=== PATIENT | female | born 1985 | race Caucasian/White ===

== ENCOUNTER → 2016-11-16 | Outpatient (CLI) | payer MEDICAID | DX: Z36 Encounter for antenatal screening of mother (principal); Z3A.24 24 weeks gestation of pregnancy ==

== ENCOUNTER 2016-12-12 23:26 | Outpatient (CLI) | payer MEDICAID ==
[~2016-12-12] VITALS: Ht 165.1 cm; Wt 91.2 kg
[2016-12-12 23:37] VITALS: BP 114/76
[2016-12-13] MEDS ORDERED: CEPHALEXIN 250 MG (KEFLEX) CAP PO ONE ×2 (00:02)
--- NOTE | 2016-12-13 11:35 | Physician Query-Final Dx ---
SANDER LONG 12/13/16 1135: Clinic Account Progress/Dx Physician Query: Please give diagnosis Date of Service Dec 12, 2016 at 23:26 CHANCE JOVEL MD 12/13/16 2010: Clinic Account Progress/Dx DIAGNOSIS: Diagnosis Abdominal pain Acute Cystitis w/o Hematuria Third trimester 30 weeks gestation SANDER LONG Dec 13, 2016 11:35 CHANCE JOVEL MD Dec 13, 2016 20:10
== END 2016-12-13 00:30 | disposition home or self-care (01) ==
LOC: WSo 23:26 → LDRP 23:29 → WSo 12-13 00:30
PROVIDERS: ATTEND Family Medicine
DX: O23.13 Infections of bladder in pregnancy, third trimester (principal); Z3A.30 30 weeks gestation of pregnancy
CPT/HCPCS: 99213

== ENCOUNTER → 2016-12-14 | Outpatient (CLI) | payer MEDICAID ==
[~2016-12-14] MED LIST: IBUP-1773 PO; PREN1TAB86 PO
--- NOTE | 2016-12-15 14:31 | Diagnostic Imaging Report ---
INDICATION: Followup incomplete anatomical survey. TECHNIQUE: Multiple real-time grayscale images were obtained over the gravid uterus. COMPARISON: 11/16/2016. FINDINGS: Single live intrauterine is again demonstrated. heart rate measures 152 beats per minute. Good visualization of the four-chamber heart on today's exam. Placenta is located posteriorly with no placenta previa. No other abnormality identified. IMPRESSION: Single live intrauterine is again noted. four-chamber heart appears within normal limits. No placenta previa. Dictated by: Dictated on workstation # [id number]
== END ==
LOC: RAD 11:20
PROVIDERS: ATTEND Family Medicine
DX: Z36 Encounter for antenatal screening of mother (principal); Z3A.00 Weeks of gestation of pregnancy not specified
CPT/HCPCS: 76816

== ENCOUNTER 2017-02-13 15:00 | Outpatient (CLI) | payer MEDICAID ==
[~2017-02-13] VITALS: Ht 165.1 cm; Wt 93.9 kg
[2017-02-13 15:30] VITALS: BP 114/75
[2017-02-13] MEDS ORDERED: PREN1TAB86 PO (15:45)
[2017-02-13 16:00] VITALS: BP 119/74
[2017-02-13 16:18] LABS: BILIRUBIN,URINE NEGATIVE (NEGATIVE); KETONES,URINE NEGATIVE (NEGATIVE); LEUKOCYTE ESTERASE ,URINE 3+ (NEGATIVE); NITRITE,URINE NEGATIVE (NEGATIVE); PH,URINE 6 (5-9); PROTEIN,URINE 2+ (NEGATIVE); UROBILINOGEN,URINE NORMAL (NORMAL)
[2017-02-13 16:27] LABS: CALCIUM OXALATE CRYSTALS,UR MODERATE /LPF; SQUAMOUS EPITHELIAL CELL,UR >50 /HPF
[2017-02-13 17:00] VITALS: BP 119/74
--- NOTE | 2017-02-14 09:42 | Physician Query-Final Dx ---
SANDER LONG 02/14/17 0942: Clinic Account Progress/Dx Physician Query: Please give diagnosis Date of Service Feb 13, 2017 at 15:00 FRANK TIERNEY MD 02/14/17 1429: Clinic Account Progress/Dx DIAGNOSIS: Diagnosis 37 week gestation Contractions with no active labor SANDER LONG Feb 14, 2017 09:42 FRANK TIERNEY MD Feb 14, 2017 14:29
== END 2017-02-13 17:15 | disposition home or self-care (01) ==
LOC: LDRP 15:00 → WSo 15:00
PROVIDERS: ATTEND Family Medicine
DX: O47.1 False labor at or after 37 completed weeks of gestation; Z3A.37 37 weeks gestation of pregnancy
CPT/HCPCS: 81000; 87088; 99213

== ENCOUNTER 2017-02-18 20:23 | Outpatient (CLI) | payer MEDICAID ==
[~2017-02-18] VITALS: Ht 165.1 cm; Wt 96.6 kg
[~2017-02-18 20:23] MED LIST changes: -IBUP-1773 PO
[2017-02-18 20:46] VITALS: BP 123/71
== END 2017-02-18 21:24 | disposition home or self-care (01) ==
LOC: WSo 20:23 → LDRP 20:23 → WSo 21:24
PROVIDERS: ATTEND Family Medicine
DX: O47.1 False labor at or after 37 completed weeks of gestation (principal); Z3A.38 38 weeks gestation of pregnancy
CPT/HCPCS: 99214

== ENCOUNTER 2017-02-27 06:04 | Inpatient (IN) | payer MEDICAID ==
[2017-02-27] VITALS (77 sets, daily range): BP systolic 95–152; BP diastolic 53–97
[~2017-02-27] VITALS: Ht 165.1 cm; Wt 96.2 kg
[2017-02-27] MEDS ORDERED: MINERAL OIL CONCENTRATE 99.9% 15 ML UDC TOP PRN (06:30)
[2017-02-27 06:33] LABS: BILIRUBIN,URINE NEGATIVE (NEGATIVE); KETONES,URINE NEGATIVE (NEGATIVE); LEUKOCYTE ESTERASE ,URINE 2+ (NEGATIVE); NITRITE,URINE NEGATIVE (NEGATIVE); PH,URINE 6 (5-9); PROTEIN,URINE NEGATIVE (NEGATIVE); UROBILINOGEN,URINE NORMAL (NORMAL)
[2017-02-27 06:40] LABS: SQUAMOUS EPITHELIAL CELL,UR 25-50 /HPF
[2017-02-27 06:47] LABS: BASOPHILS % (AUTO) 0 % (0-10); EOSINOPHILS # (AUTO) 0.1 10^3/uL (0.0-0.3); EOSINOPHILS % (AUTO) 1 % (0-10); LYMPHOCYTES # (AUTO) 2.5 X 10^3 (1.0-4.0); LYMPHOCYTES % (AUTO) 25 % (12-44); MEAN CORPUSCULAR HEMOGLOBIN 30 PG (25-34); MEAN CORPUSCULAR HGB CONC 35 G/DL (32-36); MEAN CORPUSCULAR VOLUME 87 FL (80-99); MEAN PLATELET VOLUME 11.5 FL (7.4-10.4); MONOCYTES # (AUTO) 0.7 X 10^3 (0.0-1.0); MONOCYTES % (AUTO) 7 % (0-12); NEUTROPHILS # (AUTO) 6.7 X 10^3 (1.8-7.8); NEUTROPHILS % (AUTO) 67 % (42-75); PLATELET COUNT 203 10^3/uL (130-400); RED BLOOD COUNT 3.87 10^6/uL (4.35-5.85)
[2017-02-27] MEDS: D5 LR IV SOLUTION 1,000 ML IV SCH ×2 (06:51→14:43)
[2017-02-27] MEDS ORDERED: OXYTOCIN/NORMAL SALINE 500 ML IV SCH ×2 (07:34→21:31)
--- NOTE | 2017-02-27 07:42 | History & Physical-OB ---
OB - Chief Complaint & HPI Date/Time Date of Admission: Date of Admission: Feb 27, 2017 at 6:11 am Time Seen by Provider: 06:35 Chief Complaint/History OB-Reason for Admission/Chief: Induction of Labor Hx : 4 Hx Para: 3 Expected Date of Delivery: Mar 03, 2017 Gestational Age in Weeks: 39 Gestational Age in Days: 3 Indication for induction: other (elective) History of Labs B+, antibody neg, RI, HIV/HepB/RPR NR. GC/chlamydia neg. 1 hour glucola normal. GBS neg. Allergies and Home Medications Allergies Coded Allergies: No Known Drug Allergies (Unverified , 12/12/16) Home Medications Vit W-Ca,Fe,FA(<1 mg) 1 Each Tablet, 1 TAB PO DAILY, (Reported) OB - History Hx of Present Care: Yes Ultrasounds: Normal mid trimester US Obstetrical Complications: None Medical Complications: None Other Concerns: Incarcerated for part of Obstetrical History Hx : 4 Hx Para: 3 Hx # Term Pregnancies: 3 Hx # Pregnancies: 0 Number of Living Children: 3 Hx Termination: No Hx Total # of Abortions (Spona: 0 Hx Multiple Gestation: No Hx Ectopic : No Hx Stillbirth: No Hx Complication: No Hx Induced Hypertens: No Hx Maternal Gestational Diabet: No Hx Hemorrhage: No Delivery History Hx Dystocia: No Hx Forceps Assisted Delivery: No Hx Vacuum Extraction Assisted: No Hx Placenta Abnormality: No Hx Distress: No Hx Large For Gestational Age I: No Hx Small for Gestational Age I: No Hx Section: No Hx Vaginal Delivery Post C-Sec: No Hx Blood Disorders: No Adverse Rxn to Tranfusion: No Patient Past Medical History PMHx: Denies PSurgHx: benign parotid tumor removal Social History/Family History HIV/AIDS: No Recent Infectious Disease Expo: No Sexually Transmitted Disease: No Alcohol Use: Denies Use Recreational Drug Use: No Smoking Cessation: Current every day smoker Immunizations Tetanus Booster (TDap): Less than 5yrs Date of Influenza Vaccine: Feb 05, 2017 Rubella: immune RPR/VDRL: Negative GBS Status: Negative HBsAG: Negative OB - Admission Exam Physical Exam Date Seen by Provider: Feb 27, 2017 Time Seen by Provider: 06:30 Vitals: Vital Signs 02/27/17 06:30 Temp 95.7 Pulse 71 Resp 16 B/P (MAP) 115/79 O2 Delivery Room Air HEENT: NCAT Abdomen: Non tender Cervical Dilatation: 4cm Effacement: 0% Station: -3 Membranes: Intact Heart Rate: 120's (115 baseline) Accelerations: Accelerations Present (with scalp stim) Short Term Variability: Present Assisted Variability: Minimal (3-5) Contractions on Admission: >10 Minutes Apart Intensity: Mild Josue Scoring Tool (Modified) Dilation (cm): 3-4cm (2) Effacement (%): 0-30% (0) Descent/Station: -3 (0) Cervix Consistency: Soft (2) Cervix Position: Middle/Mid-Position (1) Add 1 point for: Each previous vaginal delivery (1) Josue Score: 7 Labs Laboratory Tests Test 02/27/17 06:25 02/27/17 06:30 Range/Units Urine Color YELLOW Urine Clarity SLIGHTLY CLOUDY Urine pH 6 5-9 Urine Specific [place] 1.020 1.016-1.022 Urine Protein NEGATIVE NEGATIVE Urine Glucose (UA) NEGATIVE NEGATIVE Urine Ketones NEGATIVE NEGATIVE Urine Nitrite NEGATIVE NEGATIVE Urine Bilirubin NEGATIVE NEGATIVE Urine Urobilinogen NORMAL NORMAL MG/DL Urine Leukocyte Esterase 2+ H NEGATIVE Urine RBC (Auto) NEGATIVE NEGATIVE Urine RBC NONE /HPF Urine WBC 5-10 H /HPF Urine Squamous Epithelial Cells 25-50 H /HPF Urine Crystals NONE /LPF Urine Bacteria MODERATE H /HPF Urine Casts NONE /LPF Urine Mucus SMALL H /LPF Urine Culture Indicated YES Urine Opiates Screen NEGATIVE NEGATIVE Urine Oxycodone Screen NEGATIVE NEGATIVE Urine Methadone Screen NEGATIVE NEGATIVE Urine Propoxyphene Screen NEGATIVE NEGATIVE Urine Barbiturates Screen NEGATIVE NEGATIVE Ur Tricyclic Antidepressants Screen NEGATIVE NEGATIVE Urine Phencyclidine Screen NEGATIVE NEGATIVE Urine Amphetamines Screen NEGATIVE NEGATIVE Urine Methamphetamines Screen NEGATIVE NEGATIVE Urine Benzodiazepines Screen NEGATIVE NEGATIVE Urine Cocaine Screen NEGATIVE NEGATIVE Urine Cannabinoids Screen NEGATIVE NEGATIVE White Blood Count 10.0 4.3-11.0 10^3/uL Red Blood Count 3.87 L 4.35-5.85 10^6/uL Hemoglobin 11.6 11.5-16.0 G/DL Hematocrit 34 L 35-52 % Mean Corpuscular Volume 87 80-99 FL Mean Corpuscular Hemoglobin 30 25-34 PG Mean Corpuscular Hemoglobin Concent 35 32-36 G/DL Red Cell Distribution Width 13.0 10.0-14.5 % Platelet Count 203 130-400 10^3/uL Mean Platelet Volume 11.5 H 7.4-10.4 FL Neutrophils (%) (Auto) 67 42-75 % Lymphocytes (%) (Auto) 25 12-44 % Monocytes (%) (Auto) 7 0-12 % Eosinophils (%) (Auto) 1 0-10 % Basophils (%) (Auto) 0 0-10 % Neutrophils # (Auto) 6.7 1.8-7.8 X 10^3 Lymphocytes # (Auto) 2.5 1.0-4.0 X 10^3 Monocytes # (Auto) 0.7 0.0-1.0 X 10^3 Eosinophils # (Auto) 0.1 0.0-0.3 10^3/uL Basophils # (Auto) 0.0 0.0-0.1 10^3/uL OB - Assessment/Plan/Diagnosis Assessment Assessment: induction of labor Plan Plan: Induction Induction Method: per Pitocin Protocol FRANK TIERNEY MD Feb 27, 2017 7:42 am
[2017-02-27] MEDS ORDERED: SUFENTA 0.6MCG/ML BUPIVA 0.125 100 ML ONE (10:04)
[2017-02-27] MEDS: EPIDURAL (SUFENTA 0.6MCG/ML BUPIVA 0.125%) 100 ML BAG EPI SCH ×2 (11:17→18:49)
[2017-02-27] MEDS ORDERED: LACTATED RINGERS 1,000 ML IV SCH ×2 (11:21→17:35)
[2017-02-27] MEDS ORDERED: ONDANSETRON 4 MG/2 ML (SDV) Z0FRAN IV PRN (11:30)
[2017-02-27] MEDS ORDERED: METOCLOPRAMIDE INJ 10 MG/2 ML (REGLAN) IV PRN (11:30)
[2017-02-27] MEDS ORDERED: NALOXONE 0.4 MG/ML 1 ML (NARCAN) VIAL IV PRN ×2 (11:30)
[2017-02-27] MEDS ORDERED: diphenhydrAMINE 50 MG/ML INJ (BENADRYL) IV PRN (11:30)
[2017-02-27] MEDS ORDERED: CATHETER FLUSH 10 ML SYR IV SCH (14:00)
--- NOTE | 2017-02-27 21:00 | OB Labor & Delivery Record ---
Vag Delivery Note Vag Delivery Note Date of Delivery: 02/27/17 Preoperative Diagnosis: Judith Bernal is a 31 /Para 4 / 3,Gestational Age (wks)39with 3 days Postoperative Diagnosis: Same Surgeon: FRANK TIERNEY Anesthesia: Epidural Delivery Type: spontaneous vaginal delivery Findings: Viable male , apgars 8/9, weight 3450 grams Lacerations: first degree perineal Intact placenta with 3 vessel cord. No nuchal cord, body cord or shoulder dystocia Estimated Blood Loss: 200 ml Complications: None Condition: Stable Description of Procedure: The patient is a G4 now P4004 who presented for IOL at term. She was admitted and informed consent was obtained. Her labor course was unremarkable. She progressed to complete dilatation and began to push. She was then set up for delivery. The 's head was delivered atraumatically in the OSMIN position. The shoulders and remainder of the infant's body were then delivered without difficulty. Upon delivery, the was placed on maternal abdomen. The cord was doubly clamped and cut and the infant was vigorous so remained skin to skin with mother. An intact placenta with 3- vessel cord delivered via Jhonny and there was found to be minimal bleeding.~ Vigorous fundal massage was performed and the fundus was found to be firm. IV oxytocin was given. Examination of the vagina and perineum revealed a first degree perineal laceration repaired in running subcuticular fashion with 3-0 rapide suture. Following the repair, sponge, instrument and needle counts were correct. Mom and baby were both in stable condition in the labor suite. Vitals - Labs Vital Signs - I&O Vital Signs 02/27/17 02/27/17 18:45 19:00 Temp 97.9 Pulse 50 Resp 18 B/P (MAP) 148/81 Pulse Ox 99 O2 Delivery Non Rebreather O2 Flow Rate 15.00 Labs Laboratory Tests 02/27/17 06:25: Urine Color YELLOW, Urine Clarity SLIGHTLY CLOUDY, Urine pH 6, Urine Specific [place] 1.020, Urine Protein NEGATIVE, Urine Glucose (UA) NEGATIVE, Urine Ketones NEGATIVE, Urine Nitrite NEGATIVE, Urine Bilirubin NEGATIVE, Urine Urobilinogen NORMAL, Urine Leukocyte Esterase 2+H, Urine RBC (Auto) NEGATIVE, Urine RBC NONE, Urine WBC 5-10H, Urine Squamous Epithelial Cells 25-50H, Urine Crystals NONE, Urine Bacteria MODERATEH, Urine Casts NONE, Urine Mucus SMALLH, Urine Culture Indicated YES, Urine Opiates Screen NEGATIVE, Urine Oxycodone Screen NEGATIVE, Urine Methadone Screen NEGATIVE, Urine Propoxyphene Screen NEGATIVE, Urine Barbiturates Screen NEGATIVE, Ur Tricyclic Antidepressants Screen NEGATIVE, Urine Phencyclidine Screen NEGATIVE, Urine Amphetamines Screen NEGATIVE, Urine Methamphetamines Screen NEGATIVE, Urine Benzodiazepines Screen NEGATIVE, Urine Cocaine Screen NEGATIVE, Urine Cannabinoids Screen NEGATIVE 02/27/17 06:30: White Blood Count 10.0, Red Blood Count 3.87L, Hemoglobin 11.6, Hematocrit 34L, Mean Corpuscular Volume 87, Mean Corpuscular Hemoglobin 30, Mean Corpuscular Hemoglobin Concent 35, Red Cell Distribution Width 13.0, Platelet Count 203, Mean Platelet Volume 11.5H, Neutrophils (%) (Auto) 67, Lymphocytes (%) (Auto) 25 , Monocytes (%) (Auto) 7, Eosinophils (%) (Auto) 1, Basophils (%) (Auto) 0, Neutrophils # (Auto) 6.7, Lymphocytes # (Auto) 2.5, Monocytes # (Auto) 0.7, Eosinophils # (Auto) 0.1, Basophils # (Auto) 0.0 FRANK TIERNEY MD Feb 27, 2017 21:00
[2017-02-27] MEDS: IBUPROFEN 600 MG (MOTRIN) TAB PO SCH (21:40)
[2017-02-27] MEDS ORDERED: BENZOCAINE/MENTHOL (DERMOPLAST) 56 ML CAN TP PRN (21:45)
[2017-02-27] MEDS ORDERED: WITCH HAZEL(TUCKS) 40 EA JAR TOP PRN (21:45)
[2017-02-28 00:03] VITALS: BP 121/69
[2017-02-28] MEDS: IBUPROFEN 600 MG (MOTRIN) TAB PO SCH ×4 (03:31→22:19)
[2017-02-28 04:00] VITALS: BP 141/74
[2017-02-28 05:08] LABS: BASOPHILS % (AUTO) 0 % (0-10); EOSINOPHILS # (AUTO) 0.1 10^3/uL (0.0-0.3); EOSINOPHILS % (AUTO) 1 % (0-10); LYMPHOCYTES # (AUTO) 1.8 X 10^3 (1.0-4.0); LYMPHOCYTES % (AUTO) 16 % (12-44); MEAN CORPUSCULAR HEMOGLOBIN 30 PG (25-34); MEAN CORPUSCULAR HGB CONC 34 G/DL (32-36); MEAN CORPUSCULAR VOLUME 87 FL (80-99); MEAN PLATELET VOLUME 11.6 FL (7.4-10.4); MONOCYTES # (AUTO) 0.6 X 10^3 (0.0-1.0); MONOCYTES % (AUTO) 5 % (0-12); NEUTROPHILS # (AUTO) 8.9 X 10^3 (1.8-7.8); NEUTROPHILS % (AUTO) 78 % (42-75); PLATELET COUNT 184 10^3/uL (130-400); RED BLOOD COUNT 3.96 10^6/uL (4.35-5.85); RED CELL DISTRIBUTION WIDTH 13.1 % (10.0-14.5); WHITE BLOOD COUNT 11.5 10^3/uL (4.3-11.0)
[2017-02-28] MEDS: CATHETER FLUSH 10 ML SYR IV SCH ×2 (07:17→09:49)
[2017-02-28 08:20] VITALS: BP 107/71
--- NOTE | 2017-02-28 09:07 | Progress Note (SOAP) ---
Subjective Subjective/Events-last exam Doing well. Lochia decreased. Pain controlled. Review of Systems Date Seen by Provider: Feb 28, 2017 Time Seen by Provider: 09:07 Objective Exam Last Set of Vital Signs Vital Signs Date Time Temp Pulse Resp B/P (MAP) Pulse Ox O2 Delivery O2 Flow Rate FiO2 02/28/17 08:20 96.8 61 16 107/71 99 Room Air 02/27/17 19:00 15.00 Capillary Refill : General: Alert, Oriented X3, Cooperative Psych/Mental Status: Mood NL Results/Procedures Lab Laboratory Tests 02/28/17 04:35: White Blood Count 11.5H, Red Blood Count 3.96L, Hemoglobin 11.8, Hematocrit 34L , Mean Corpuscular Volume 87, Mean Corpuscular Hemoglobin 30, Mean Corpuscular Hemoglobin Concent 34, Red Cell Distribution Width 13.1, Platelet Count 184, Mean Platelet Volume 11.6H, Neutrophils (%) (Auto) 78H, Lymphocytes (%) (Auto) 16, Monocytes (%) (Auto) 5, Eosinophils (%) (Auto) 1, Basophils (%) (Auto) 0, Neutrophils # (Auto) 8.9H, Lymphocytes # (Auto) 1.8, Monocytes # (Auto) 0.6, Eosinophils # (Auto) 0.1, Basophils # (Auto) 0.0 Microbiology 02/27/17 Urine Culture - Preliminary, Resulted Assessment/Plan Assessment/Plan Plan 1. PPD#1 s/p 2. 1st degree laceration repair - continue routine pp care - anticipate DC home tomorrow. Diagnosis/Problems: Clinical Quality Measures DVT/VTE Risk/Contraindication: Risk Factor Score Per Nursin RFS Level Per Nursing on Admit: 2=Moderate MARCO CAZARES DO Feb 28, 2017 09:07
[2017-02-28 12:58] VITALS: BP 114/71
[2017-02-28 16:11] VITALS: BP 118/72
[2017-02-28 20:00] VITALS: BP 132/72
[2017-03-01 02:00] VITALS: BP 125/67
[2017-03-01] MEDS: IBUPROFEN 600 MG (MOTRIN) TAB PO SCH ×2 (04:22→12:32)
[2017-03-01 07:50] VITALS: BP 120/71
--- NOTE | 2017-03-01 09:31 | Discharge Summary ---
Diagnosis/Chief Complaint Date of Admission Feb 27, 2017 at 06:11 Date of Discharge Mar 01, 2017 Admission Diagnosis Admission Diagnosis 1. at 39w4d - IOL Discharge Diagnosis 1. PPD#2 s/p 2. 1st degree laceration repair - Routine pp care - DC home. Discharge Summary-OBS Procedures None. Discharge Physical Examination Allergies: Coded Allergies: No Known Drug Allergies (Unverified , 12/12/16) Vitals & I&Os Vital Sign - Last 12Hours Date Time Temp Pulse Resp B/P (MAP) Pulse Ox O2 Delivery O2 Flow Rate FiO2 03/01/17 07:50 73 18 120/71 97 Room Air 03/01/17 02:00 98.0 02/27/17 19:00 15.00 General Appearance: Alert, Oriented X3, Cooperative Psych/Mental Status: Mood NL Hospital Course Routine course Labs Microbiology 02/27/17 Urine Culture - Final, Complete Discussion & Recommendations Follow-up with Dr. Courtney in 6wk. Discharge Instructions to patient/family Please see electronic discharge instructions given to patient. Discharge Medications Reviewed and agree with Discharge Medication list on patient's Discharge Instruction sheet Clinical Quality Measures DVT/VTE Risk/Contraindication: Risk Factor Score Per Nursin RFS Level Per Nursing on Admit: 2=Moderate MARCO CAZARES DO Mar 01, 2017 09:31
[2017-03-01] MEDS ORDERED: IBUP-1773 PO (09:32)
--- NOTE | 2017-03-01 09:34 | Discharge Instructions ---
Discharge Inst-[facility] Depart Medications New, Converted or Re-Newed RX: Transmitted to Pharmacy ([facility]) New Medications: Ibuprofen (Ibuprofen) 600 Mg Tablet 600 MG PO Q6H PRN for CRAMPS, #90 TAB Continued Medications: Vit W-Ca,Fe,FA(<1 mg) ( Vitamins) 1 Each Tablet 1 TAB PO DAILY, TAB Follow Up/Instructions Goal/Follow Up: Follow-up w/ Dr. Courtney 6 wk Activity Activity: Activity as Tolerated Nothing Inside Vagina: No Douching, No [place], No Tampons Diet Discharge Diet: No Restrictions Symptoms to Report to : Bleeding Excessive, Pain Increased, Fever Over 101 Degrees F, Vaginal Bleeding Increase, Vaginal Discharge Foul, Shortness of Breath For Any Problems or Questions: Contact Your Physician MARCO CAZARES DO Mar 01, 2017 09:34
== END 2017-03-01 13:25 | disposition home or self-care (01) | DRG 775 ==
LOC: LDRP 06:11
PROVIDERS: ADMIT Family Medicine; ATTEND Family Medicine
PROC: 10E0XZZ Delivery of Products of Conception, External Approach (ICD-10-PCS; principal; 2017-02-27)
PROC: 0HQ9XZZ Repair Perineum Skin, External Approach (ICD-10-PCS; 2017-02-27)
DX: O99.333 Smoking (tobacco) complicating pregnancy, third trimester (principal); F17.210 Nicotine dependence, cigarettes, uncomplicated; O70.0 First degree perineal laceration during delivery; Z3A.39 39 weeks gestation of pregnancy; Z37.0 Single live birth
CPT/HCPCS: 36415; 80306; 81000; 85025; 86850; 86900; 86901; 87088

== ENCOUNTER 2018-01-04 08:28 | Emergency (ER) | payer MEDICAID ==
[~2018-01-04] VITALS: Ht 165.1 cm; Wt 96.2 kg
[~2018-01-04 08:28] MED LIST changes: +IBUP-1773 PO
--- NOTE | 2018-01-04 08:50 | ED Lower Extremity ---
General Chief Complaint: Lower Extremity Stated Complaint: POSS BROKEN RT FOOT Source: patient, family (daughter) Exam Limitations: no limitations History of Present Illness Date Seen by Provider: Jan 04, 2018 Time Seen by Provider: 08:38 Initial Comments Patient presents to ER by private conveyance with chief complaint she got her foot caught under a stroller 2 days ago and is having some pain and mild swelling in her right ankle: Foot region. She has no previous history of fracture or surgery on the foot that she is aware of. She wrapped it with an Ollie bandage and has not required any Tylenol or Motrin but she was concerned that 2 days later she's having some brownish discoloration and little swelling in her foot after being off for the past 2 days and not having her foot wrapped up her in a tennis shoe that maybe there was an missed fracture. Her pain is on the medial side of her right foot on the bottom and worse with stepping. She is able to walk on it. Allergies and Home Medications Allergies Coded Allergies: No Known Drug Allergies (Unverified , 12/12/16) Home Medications Ibuprofen 600 Mg Tablet, 600 MG PO Q6H PRN for CRAMPS Prescribed by: MARCO CAZARES on 03/01/17 0932 Vit W-Ca,Fe,FA(<1 mg) 1 Each Tablet, 1 TAB PO DAILY, (Reported) Patient Home Medication List Home Medication List Reviewed: Yes Constitutional: No chills, No diaphoresis EENTM: No ear discharge, No ear pain Respiratory: No cough, No short of breath Cardiovascular: No chest pain, No edema Gastrointestinal: No abdominal pain, No nausea Genitourinary: No discharge, No dysuria Past Tzaayre-Bdvkhx-Fbevdd Hx Patient Social History Alcohol Use: Denies Use Recreational Drug Use: No Smoking Status: Former Smoker Type Used: Cigarettes Former Smoker, Quit: Dec 03, 2016 Recent Foreign Travel: No Contact w/Someone Who Travel: No Recent Hopitalizations: No Immunizations Up To Date Tetanus Booster (TDap): Less than 5yrs PED Vaccines UTD: Yes Date of Influenza Vaccine: Feb 05, 2017 Seasonal Allergies Seasonal Allergies: Yes Past Medical History Surgeries: Yes (wisdom teeth 2009,SALIVARY GLAND LUMP REMOVED 2011-BENIGN ) Respiratory: No Cardiac: No Neurological: No Female Reproductive Disorders: Denies Sexually Transmitted Disease: No HIV/AIDS: No Genitourinary: No Gastrointestinal: No Musculoskeletal: No Endocrine: No HEENT: No Loss of Vision: Denies Hearing Impairment: Denies Cancer: No Psychosocial: Yes ADD/ADHD Integumentary: No Blood Disorders: No Adverse Reaction/Blood Tranf: No Family Medical History Alcoholism 19 FATHER PATERNAL GRANDMOTHER PATERNAL GRANDFATHER Hypertension 19 MOTHER Neoplasm PATERNAL GRANDMOTHER (LUNG CANCER) Physical Exam Vital Signs Capillary Refill : Height, Weight, BMI Height: 5'5.00" Weight: 212lbs. 0.0oz. 96.723965do; 35.3 BMI Method: General Appearance: WD/WN, no apparent distress Neck: non-tender, full range of motion, normal inspection Cardiovascular: normal peripheral pulses, regular rate, rhythm Ankles: bilateral ankle non-tender, bilateral ankle normal inspection, bilateral ankle normal range of motion, bilateral ankle no evidence of injury Feet: left foot non-tender; bilateral foot normal inspection, bilateral foot normal range of motion; left foot no evidence of injury; right foot soft tissue tenderness (and medial plantar surface tenderness to palpation) Neurologic/Tendon: normal sensation, normal motor functions, normal tendon functions, responds to pain, no evidence tendon injury Neurologic/Psychiatric: no motor/sensory deficits, alert, normal mood/affect, oriented x 3 Skin: normal color, warm/dry Progress/Results/Core Measures Progress Progress Note : Time: 08:50 Progress Note Clinical examination and history are most consistent with a plantar fasciitis. There is no tenderness directly over the navicular, metatarsal or any other tarsals. There is no tenderness around the ankle. There is no apparent swelling. She has been using Ollie bandage for compression. We'll give her rice therapy instructions and encourage her to follow up with the primary care physician if no improvement in 7 days. We offered x-rays of the foot to rule out fracture and she has declined at this time. Departure Impression Primary Impression: Plantar fasciitis Disposition: 01 HOME, SELF-CARE Condition: Stable Departure-Patient Inst. Decision time for Depature: 08:51 Referrals: FRANK TIERNEY MD (PCP/Family) Primary Care Physician Patient Instructions: Plantar Fasciitis Exercises Add. Discharge Instructions: Review perform some exercises stretch out the ligaments and plantar fascia several times a day. Use ice for 20 minutes every 2-4 hours for the first 3 days. Use Tylenol 1000 mg and/or ibuprofen 800 mg every 8 hours. If you're not seeing any improvement in the next 7 days follow-up to primary care doctor for reevaluation and imaging. All discharge instructions reviewed with patient and/or family. Voiced understanding. Work/School Note: Work Release Form Date Seen in the Emergency Department: Jan 04, 2018 Return to Work: Jan 04, 2018 Restrictions: No Restrictions Copy Copies To 1: MARCO CAZARES TITUS J Jan 04, 2018 08:50
[2018-01-04 09:09] VITALS: BP 97/69
== END 2018-01-04 09:09 | disposition home or self-care (01) ==
LOC: EDUNIT# 08:28 → ER 08:31
DX: M72.2 Plantar fascial fibromatosis (principal); F90.9 Attention-deficit hyperactivity disorder, unspecified type; Z80.1 Family history of malignant neoplasm of trachea, bronchus and lung; Z87.891 Personal history of nicotine dependence
CPT/HCPCS: 99283

== ENCOUNTER 2018-06-09 14:54 | Emergency (ER) | payer MEDICAID, OTHER ==
[~2018-06-09] VITALS: Ht 165.1 cm; Wt 89.4 kg
--- NOTE | 2018-06-09 15:24 | ED Head Injury ---
General Chief Complaint: Head/Cervical Problems Stated Complaint: HEAD INJ/HEAD PRESSURE/MUSCLE SPASMS Nursing Triage Note: pt presents to er with complaint of head injury. states she was at work on sunday and hit her head on the walk in freezer door. states she has had a headache since. states she woke up today and was shaking. states she has been shaking at various times throughout the day. states she also has a pressure behind her left eye. Source: patient Exam Limitations: no limitations History of Present Illness Date Seen by Provider: Jun 09, 2018 Time Seen by Provider: 15:19 Initial Comments To ER with reports of a left-sided head injury. 2 days ago while working a double shift at [employer] she was carrying a box through the doorway and struck the left side of her forehead on the door frame. This immediately became red she had no bruising and she feels like it should bruised. She also states that "people who know me and seemingly every day feel like the left side of my face is swollen and drooping". She denies any loss of consciousness at the time of hitting her head. She did have instant ringing in her ears but states that she has anxiety and occasionally gets ringing in her ears so she attributed that to her anxiety. However, since then she's had progressive left-sided headache, nausea without vomiting and dizziness. She denies any rhinorrhea or sore throat, no fever or chills no cough. Occurred: other (2 days ago) Severity: moderate Location: frontal Method of Injury: direct blow Loss of Consciousness: no loss of consciousness Associated Systoms: Headaches, Nausea/Vomiting (nausea without vomiting) Allergies and Home Medications Allergies Coded Allergies: No Known Drug Allergies (Unverified , 12/12/16) Home Medications Ibuprofen 600 Mg Tablet, 600 MG PO Q6H PRN for CRAMPS Prescribed by: MARCO CAZARES on 03/01/17 0932 Vit W-Ca,Fe,FA(<1 mg) 1 Each Tablet, 1 TAB PO DAILY, (Reported) Patient Home Medication List Home Medication List Reviewed: Yes Review of Systems Review of Systems Constitutional: see HPI Eyes: No Symptoms Reported Ears, Nose, Mouth, Throat: no symptoms reported Respiratory: no symptoms reported Cardiovascular: no symptoms reported Genitourinary: no symptoms reported Musculoskeletal: no symptoms reported Skin: no symptoms reported Psychiatric/Neurological: No Symptoms Reported Past Cptbxie-Ohagrv-Clnkfc Hx Patient Social History Alcohol Use: Occasionally Uses Recreational Drug Use: No Smoking Status: Current Everyday Smoker Type Used: Cigarettes Former Smoker, Quit: Dec 03, 2016 Recent Foreign Travel: No Contact w/Someone Who Travel: No Recent Infectious Disease Expo: No Recent Hopitalizations: No Immunizations Up To Date Tetanus Booster (TDap): Unknown PED Vaccines UTD: Yes Date of Influenza Vaccine: Feb 05, 2017 Seasonal Allergies Seasonal Allergies: Yes Past Medical History Surgeries: Yes (wisdom teeth 2009,SALIVARY GLAND LUMP REMOVED 2011-BENIGN ) Respiratory: No Cardiac: No Neurological: No Female Reproductive Disorders: Denies Sexually Transmitted Disease: No HIV/AIDS: No Genitourinary: No Gastrointestinal: No Musculoskeletal: No Endocrine: No HEENT: No Loss of Vision: Denies Hearing Impairment: Denies Cancer: No Psychosocial: Yes ADD/ADHD Integumentary: No Blood Disorders: No Adverse Reaction/Blood Tranf: No Family Medical History Alcoholism 19 FATHER PATERNAL GRANDMOTHER PATERNAL GRANDFATHER Hypertension 19 MOTHER Neoplasm PATERNAL GRANDMOTHER (LUNG CANCER) Physical Exam Vital Signs Vital Signs - First Documented 06/09/18 15:00 Temp 98.0 Pulse 74 Resp 20 B/P (MAP) 140/71 (94) Pulse Ox 99 O2 Delivery Room Air Capillary Refill : Less Than 3 Seconds Height, Weight, BMI Height: 5'5.00" Weight: 197lbs. 0.0oz. 89.435249to; 35.3 BMI Method:Stated General Appearance: WD/WN, no apparent distress HEENT: PERRL/EOMI, normal ENT inspection, other (there is no ecchymosis or hematoma abrasion or erythema to the left side of the forehead where she states she struck her head. She does report tenderness to palpation in this location. There is no erythema or swelling or drooping that is apparent to me. There is no hemotympanum. No Lewis sign. No raccoon eyes. GCS 15.) Neck: non-tender, full range of motion Cardiovascular: regular rate, rhythm, no murmur Respiratory: lungs clear, normal breath sounds, no respiratory distress, no accessory muscle use Gastrointestinal: normal bowel sounds, non tender Extremities: normal range of motion, non-tender Psychiatric: alert, oriented x 3 Crainal Nerves: normal hearing, normal speech, PERRL Skin: normal color, warm/dry Progress/Results/Core Measures Results/Orders My Orders Orders - GAVIN ANDRADE APRN Ct Head Wo (06/09/18 15:18) Butalbital/Apap/Caffeine Tab (Fioricet T (06/09/18 15:30) Vital Signs/I&O 06/09/18 15:00 Temp 98.0 Pulse 74 Resp 20 B/P (MAP) 140/71 (94) Pulse Ox 99 O2 Delivery Room Air Blood Pressure Mean: 94 Departure Impression Primary Impression: Concussion without loss of consciousness Qualified Codes: S06.0X0A - Concussion without loss of consciousness, initial encounter Disposition: 01 HOME, SELF-CARE Condition: Stable Departure-Patient Inst. Decision time for Depature: 15:23 Referrals: FRANK TIERNEY MD (PCP/Family) Primary Care Physician Patient Instructions: Concussion, Adult (DC) Add. Discharge Instructions: 1. Tylenol and Motrin for headache. Nausea medication as needed 3. Follow-up with your doctor next week. All discharge instructions reviewed with patient and/or family. Voiced understanding. Scripts Ondansetron (Ondansetron Odt) 4 Mg Tab.rapdis 4 MG PO Q6H PRN for NAUSEA/VOMITING, #10 TAB Prov: GAVIN ANDRADE APRN 06/09/18 Work/School Note: Work Release Form Date Seen in the Emergency Department: Jun 09, 2018 Return to Work: Jun 11, 2018 Restrictions: No Restrictions GAVIN ANDRADE APRN Jun 09, 2018 15:24
[2018-06-09] MEDS ORDERED: ACET/BUTAL/CAFF (FIORICET) TAB PO PRN (15:30)
[2018-06-09] MEDS ORDERED: ONDA4TAB11 PO (15:45)
--- NOTE | 2018-06-09 15:52 | Diagnostic Imaging Report ---
PROCEDURE: CT head without contrast. TECHNIQUE: Multiple contiguous axial images were obtained through the brain without the use of intravenous contrast. INDICATION: Head injury. Fall three days prior. FINDINGS: There are no CT findings of acute intracranial hemorrhage. There is no evidence of intracranial mass effect or shift. There is no hydrocephalus. There is no abnormal extra-axial fluid collection and the basilar cisterns appear patent. Cota and white matter differentiation appear well maintained. The mastoid air cells appear clear on the right. There has been prior surgical changes of a left-sided mastoidectomy. The paranasal sinuses demonstrates some minimal mucosal thickening in the right ethmoids. Orbital contents unremarkable. There is no acute calvarial abnormality. IMPRESSION: 1. No CT evidence of an acute intracranial abnormality. 2. Previous left mastoidectomy. Dictated by: Dictated on workstation # [id number]
[2018-06-09 16:08] VITALS: BP 140/71
== END 2018-06-09 16:08 | disposition home or self-care (01) ==
LOC: EDUNIT# 14:54 → ER 14:56
DX: S06.0X0A Concussion without loss of consciousness, initial encounter (principal); F41.9 Anxiety disorder, unspecified; F90.9 Attention-deficit hyperactivity disorder, unspecified type; Z80.1 Family history of malignant neoplasm of trachea, bronchus and lung; Z82.49 Family history of ischemic heart disease and other diseases of the circulatory system; Z87.891 Personal history of nicotine dependence; Z98.890 Other specified postprocedural states; W22.09XA Striking against other stationary object, initial encounter; Y92.59 Other trade areas as the place of occurrence of the external cause; Y99.0 Civilian activity done for income or pay
CPT/HCPCS: 70450

== ENCOUNTER 2018-06-24 20:03 | Emergency (ER) | payer SELFPAY ==
[~2018-06-24] VITALS: Ht 165.1 cm; Wt 88.5 kg
[~2018-06-24 20:03] MED LIST changes: +ONDA4TAB11 PO
[2018-06-24 20:38] LABS: BILIRUBIN,URINE NEGATIVE (NEGATIVE); CLARITY,URINE SLIGHTLY CLOUDY; COLOR,URINE AMBER; GLUCOSE, URINE (UA) NEGATIVE (NEGATIVE); KETONES,URINE 4+ (NEGATIVE); LEUKOCYTE ESTERASE ,URINE 1+ (NEGATIVE); NITRITE,URINE NEGATIVE (NEGATIVE); PH,URINE 5 (5-9); PROTEIN,URINE 2+ (NEGATIVE); UROBILINOGEN,URINE 4 MG/DL (NORMAL)
[2018-06-24 20:39] LABS: BASOPHILS # (AUTO) 0.1 10^3/uL (0.0-0.1); BASOPHILS % (AUTO) 1 % (0-10); EOSINOPHILS # (AUTO) 0.2 10^3/uL (0.0-0.3); EOSINOPHILS % (AUTO) 2 % (0-10); HEMATOCRIT 41 % (35-52); HEMOGLOBIN 14.1 G/DL (11.5-16.0); LYMPHOCYTES # (AUTO) 2.6 X 10^3 (1.0-4.0); LYMPHOCYTES % (AUTO) 25 % (12-44); MEAN CORPUSCULAR HEMOGLOBIN 29 PG (25-34); MEAN CORPUSCULAR HGB CONC 34 G/DL (32-36); MEAN CORPUSCULAR VOLUME 85 FL (80-99); MEAN PLATELET VOLUME 10.2 FL (7.4-10.4); MONOCYTES # (AUTO) 0.8 X 10^3 (0.0-1.0); MONOCYTES % (AUTO) 8 % (0-12); NEUTROPHILS # (AUTO) 6.6 X 10^3 (1.8-7.8); NEUTROPHILS % (AUTO) 65 % (42-75); PLATELET COUNT 272 10^3/uL (130-400); WHITE BLOOD COUNT 10.2 10^3/uL (4.3-11.0)
[2018-06-24 20:47] LABS: BACTERIA,URINE FEW /HPF; RBC,URINE 0-2 /HPF; WBC,URINE 0-2 /HPF
[2018-06-24 20:48] LABS: HCG,QUALITATIVE URINE NEGATIVE (NEGATIVE)
[2018-06-24 20:57] LABS: ALANINE AMINOTRANSFERASE 20 U/L (0-55); ALBUMIN 4.8 GM/DL (3.2-4.5); ALKALINE PHOSPHATASE 66 U/L (40-136); BILIRUBIN,TOTAL 1.2 MG/DL (0.1-1.0); BUN/CREATININE RATIO 10; CALCIUM 9.3 MG/DL (8.5-10.1); CARBON DIOXIDE 20 MMOL/L (21-32); CHLORIDE 107 MMOL/L (98-107); CREATININE SERUM 0.73 MG/DL (0.60-1.30); GFR ESTIMATED > 60; GLUCOSE 94 MG/DL (70-105); POTASSIUM 3.3 MMOL/L (3.6-5.0); SALICYLATE < 5.0 MG/DL (5.0-20.0); SODIUM 140 MMOL/L (135-145); TOTAL PROTEIN 7.8 GM/DL (6.4-8.2)
[2018-06-24 21:03] LABS: AMPHETAMINE SCREEN, URINE NEGATIVE (NEGATIVE); BARBITURATE SCREEN URINE NEGATIVE (NEGATIVE); BENZODIAZEPINES SCREEN URINE NEGATIVE (NEGATIVE); CANNABINOID SCREEN, URINE NEGATIVE (NEGATIVE); COCAINE SCREEN URINE NEGATIVE (NEGATIVE); METHADONE STAT NEGATIVE (NEGATIVE); METHAMPHETAMINE SCREEN URINE S NEGATIVE (NEGATIVE); OPIATE SCREEN URINE NEGATIVE (NEGATIVE); OXYCODONE STAT NEGATIVE (NEGATIVE); PROPOXYPHENE STAT NEGATIVE (NEGATIVE); TRICYCLIC ANTIDEPRESSANTS SCRE NEGATIVE (NEGATIVE)
[2018-06-24 21:05] LABS: ACETAMINOPHEN < 10 UG/ML (10-30)
[2018-06-24] MEDS ORDERED: KCL 10 MEQ TAB (MICRO K) PO ONE (21:15)
--- NOTE | 2018-06-24 21:40 | NUR ---
DAYANA BARRIENTOS NOTIFIED OF PT NEED FOR TRANSFER TO [facility] IN [place], [place].
--- NOTE | 2018-06-24 21:54 | ED Psychosocial ---
General Chief Complaint: Suicidal Ideation Risk Stated Complaint: SUICIDAL Nursing Triage Note: pt arrived to ED pov with c/o wanting to kill herself. Pt has a plan. Pt will put her kids to bed, get in the shower and cut herself until she dies. Pt states she hears voices in her head and has her entire life but within the last week it has gotten way worse. The voices tell her she is worthless, she doesn't need to be here anymore, and her kids are better off Source: patient Exam Limitations: no limitations History of Present Illness Date Seen by Provider: Jun 24, 2018 Time Seen by Provider: 20:15 Initial Comments PT ARRIVES VIA POV--CAME HERE ON HER OWN C/O HAVING SUICIDAL THOUGHTS STATES SHE HAS A "CONSTANT NAGGING VOICE IN MY HEAD THAT SAYS I'M WORTHLESS, I' M USELESS, NOBODY LOVES ME" "I'M / THE WORLD IS BETTER OFF WITHOUT ME" PT STATES SHE HAS BEEN HAVING CONSTANT SUICIDAL THOUGHTS FOR THE LAST MONTH, BUT STATES "TONIGHT I HAD A PLAN" STATES "I WAS GOING TO PUT MY KIDS TO BED, GET IN THE SHOWER AND USE THE BLADE THAT I HAVE, AND CUT MY WRISTS" STATES 1-2 MONTHS AGO, SHE DID MAKE A FEW SUPERFICIAL CUTS ON HER ARMS, BUT NEVER SOUGHT CARE. STATES SHE HAD BURNED AND CUT HERSELF IN THE PAST, BUT NEVER SOUGHT CARE. STATES SHE HAS HAD A LONG HISTORY OF SUICIDAL THOUGHT, DEPRESSION, ANXIETY, BUT HAS NOT HAD ANY SIGNIFICANT MENTAL HEALTH CARE. 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 STATES SHE HAS "CUT" "SELF -MUTILATED" SINCE SHE WAS 16 PT STATES SHE DID HAVE VERY BRIEF MENTAL HEALTH CARE WHEN SHE WAS IN HER 20'S AND LIVING IN [facility], TOOK MEDICATIONS FOR A MONTH AND NEVER WENT BACK SHE STATES SHE DID GO TO [facility] 5-6 MONTHS AGO AND TOLD THEM SHE WANTED PROZAC , AND IT WAS PRESCRIBED TO HER. PT STATES SHE TOOK IT FOR THREE DAYS, BUT STOPPED TAKING IT "BECAUSE I WANTED TO KILL MY KIDS AND MYSELF" PT STATES SHE HAS NOT HAD RECENT THOUGHTS OF HURTING HER CHILDREN PT STATES SHE DID LEAVE WORK EARLY TODAY AND GO TO THE WALK IN CLINIC AT [facility] FOR THIS PROBLEM, AND WAS THERE FOR 30 MINUTES AND THEY SET HER UP / REFERRED HER TO PSYCH--APPOINTMENT MADE FOR 07/24/18. PT STATES "MY LIFE IS A LIVING HELL" PT STATES SHE IS FROM HER AND HE IS IN [place] RIGHT NOW 2 OF HER 4 CHILDREN LIVE IN [place] WITH THEIR FATHER, THE OTHER 2 CHILDREN LIVE HERE WITH HER--STATES A FRIEND/POLYSOM TECH IS WITH THEM NOW PT STATES SHE IS HAVING RELATIONSHIP PROBLEMS WITH HER FEMALE PARTNER/ SIGNIFICANT OTHER STATES SHE AND HER 2 CHILDREN WERE LIVING WITH HER GIRLFRIEND FOR THE LAST MONTH , BUT GIRLFRIEND ASKED HER TO LEAVE RECENTLY-STATES "SHE KICKED ME OUT" PT STATES "SHE SAID I WAS PUSHING HER AWAY AND I WAS BEING MEAN TO HER FOR NO REASON, AND I WENT OFF ON HER FOR NO REASON" PCP: [facility] Allergies and Home Medications Allergies Coded Allergies: No Known Drug Allergies (Unverified , 12/12/16) Home Medications Ibuprofen 600 Mg Tablet, 600 MG PO Q6H PRN for CRAMPS Prescribed by: MARCO CAZARES on 03/01/17 0932 Ondansetron 4 Mg Tab.rapdis, 4 MG PO Q6H PRN for NAUSEA/VOMITING Prescribed by: GAVIN ANDRADE on 06/09/18 1545 Vit W-Ca,Fe,FA(<1 mg) 1 Each Tablet, 1 TAB PO DAILY, (Reported) Patient Home Medication List Home Medication List Reviewed: Yes Review of Systems Constitutional: no symptoms reported EENTM: no symptoms reported Respiratory: no symptoms reported Cardiovascular: no symptoms reported Gastrointestinal: see HPI, loss of appetite, nausea, vomiting, other (STATES SHE TRIED TO EAT TODAY AT 1700, BUT THREW IT UP) Genitourinary: no symptoms reported LMP: Jun 11, 2018 Control/STD Prophylaxis: Depo Provera (LAST SHOT 2 MONTHS AGO) Musculoskeletal: no symptoms reported Skin: no symptoms reported Psychiatric/Neurological: See HPI, Anxiety, Depressed, Emotional Problems, Other (PT SEEN IN ER 06/09/18 AFTER HITTING HER HEAD ON A DOOR FRAME, NO LOSS OF CONSCIOUSNESS, CT OF HEAD NORMAL. ) Past Lipejth-Bmwyfc-Hfrzny Hx Patient Social History Alcohol Use: Occasionally Uses Recreational Drug Use: No (DENIES) Smoking Status: Current Everyday Smoker (1 PPD) Type Used: Cigarettes Recent Foreign Travel: No Contact w/Someone Who Travel: No Recent Infectious Disease Expo: No Recent Hopitalizations: No Immunizations Up To Date Tetanus Booster (TDap): Unknown PED Vaccines UTD: Yes Date of Influenza Vaccine: Feb 05, 2017 Seasonal Allergies Seasonal Allergies: Yes Past Medical History Surgeries: Yes (wisdom teeth 2009,SALIVARY GLAND LUMP REMOVED 2011-BENIGN ) Respiratory: No Cardiac: No Neurological: No : No Hx : 4 Hx Para: 4 Hx Total # of Abortions (Sp): 0 Female Reproductive Disorders: Denies Sexually Transmitted Disease: No HIV/AIDS: No Genitourinary: No Gastrointestinal: No Musculoskeletal: No Endocrine: No HEENT: No Loss of Vision: Denies Hearing Impairment: Denies Cancer: No Psychosocial: Yes ADD/ADHD, Sleep Difficulties, Anxiety, Suicide Attempts, Depression Integumentary: No Blood Disorders: No Adverse Reaction/Blood Tranf: No Family Medical History Alcoholism 19 FATHER PATERNAL GRANDMOTHER PATERNAL GRANDFATHER Hypertension 19 MOTHER Neoplasm PATERNAL GRANDMOTHER (LUNG CANCER) Physical Exam Vital Signs - First Documented 06/24/18 20:09 Temp 96.9 Pulse 91 Resp 20 B/P (MAP) 195/97 (129) Pulse Ox 99 O2 Delivery Room Air Capillary Refill : Less Than 3 Seconds Height, Weight, BMI Height: 5'5.00" Weight: 195lbs. 0.0oz. 88.353599jf; 35.3 BMI Method:Stated General Appearance: WD/WN, no apparent distress, other (TEARFUL. COOPERATIVE. ) HEENT: PERRL/EOMI Neck: normal inspection Respiratory: normal breath sounds Cardiovascular: regular rate, rhythm, no murmur Gastrointestinal: non tender, soft Extremities: normal inspection, normal capillary refill Neurologic/Psychiatric: hot dip galvanizer II-XII nml as tested, no motor/sensory deficits, alert, oriented x 3 Appearance/Memory: appropriate appearance, appropriate insight, no memory impairment Behavior/Eye Contact: cooperative, good eye contact, normal speech Thoughts/Hallucinations: normal thought pattern Skin: normal color, warm/dry, other (NO RECENT EVIDENCE OF INJURY--HAS A FEW OLD SUPERFICIAL-APPEARING SCARS TO BILATERAL FOREARMS. ) Progress/Results/Core Measures Results/Orders Lab Results Laboratory Tests Test 06/24/18 20:28 06/24/18 20:31 Range/Units White Blood Count 10.2 4.3-11.0 10^3/uL Red Blood Count 4.83 4.35-5.85 10^6/uL Hemoglobin 14.1 11.5-16.0 G/DL Hematocrit 41 35-52 % Mean Corpuscular Volume 85 80-99 FL Mean Corpuscular Hemoglobin 29 25-34 PG Mean Corpuscular Hemoglobin Concent 34 32-36 G/DL Red Cell Distribution Width 15.0 H 10.0-14.5 % Platelet Count 272 130-400 10^3/uL Mean Platelet Volume 10.2 7.4-10.4 FL Neutrophils (%) (Auto) 65 42-75 % Lymphocytes (%) (Auto) 25 12-44 % Monocytes (%) (Auto) 8 0-12 % Eosinophils (%) (Auto) 2 0-10 % Basophils (%) (Auto) 1 0-10 % Neutrophils # (Auto) 6.6 1.8-7.8 X 10^3 Lymphocytes # (Auto) 2.6 1.0-4.0 X 10^3 Monocytes # (Auto) 0.8 0.0-1.0 X 10^3 Eosinophils # (Auto) 0.2 0.0-0.3 10^3/uL Basophils # (Auto) 0.1 0.0-0.1 10^3/uL Sodium Level 140 135-145 MMOL/L Potassium Level 3.3 L 3.6-5.0 MMOL/L Chloride Level 107 98-107 MMOL/L Carbon Dioxide Level 20 L 21-32 MMOL/L Anion Gap 13 5-14 MMOL/L Blood Urea Nitrogen 7 7-18 MG/DL Creatinine 0.73 0.60-1.30 MG/DL Estimat Glomerular Filtration Rate > 60 BUN/Creatinine Ratio 10 Glucose Level 94 70-105 MG/DL Calcium Level 9.3 8.5-10.1 MG/DL Corrected Calcium 8.5-10.1 MG/DL Total Bilirubin 1.2 H 0.1-1.0 MG/DL Aspartate Amino Transf (AST/SGOT) 20 5-34 U/L Alanine Aminotransferase (ALT/SGPT) 20 0-55 U/L Alkaline Phosphatase 66 40-136 U/L Total Protein 7.8 6.4-8.2 GM/DL Albumin 4.8 H 3.2-4.5 GM/DL Salicylates Level < 5.0 L 5.0-20.0 MG/DL Acetaminophen Level < 10 L 10-30 UG/ML Serum Alcohol < 10 <10 MG/DL Urine Color DIDIER H Urine Clarity SLIGHTLY CLOUDY Urine pH 5 5-9 Urine Specific [place] 1.025 H 1.016-1.022 Urine Protein 2+ H NEGATIVE Urine Glucose (UA) NEGATIVE NEGATIVE Urine Ketones 4+ H NEGATIVE Urine Nitrite NEGATIVE NEGATIVE Urine Bilirubin NEGATIVE NEGATIVE Urine Urobilinogen 4 H NORMAL MG/DL Urine Leukocyte Esterase 1+ H NEGATIVE Urine RBC (Auto) 3+ H NEGATIVE Urine RBC 0-2 /HPF Urine WBC 0-2 /HPF Urine Squamous Epithelial Cells 5-10 /HPF Urine Crystals NONE /LPF Urine Bacteria FEW H /HPF Urine Casts NONE /LPF Urine Mucus MODERATE H /LPF Urine Culture Indicated NO Urine Test NEGATIVE NEGATIVE Urine Opiates Screen NEGATIVE NEGATIVE Urine Oxycodone Screen NEGATIVE NEGATIVE Urine Methadone Screen NEGATIVE NEGATIVE Urine Propoxyphene Screen NEGATIVE NEGATIVE Urine Barbiturates Screen NEGATIVE NEGATIVE Ur Tricyclic Antidepressants Screen NEGATIVE NEGATIVE Urine Phencyclidine Screen NEGATIVE NEGATIVE Urine Amphetamines Screen NEGATIVE NEGATIVE Urine Methamphetamines Screen NEGATIVE NEGATIVE Urine Benzodiazepines Screen NEGATIVE NEGATIVE Urine Cocaine Screen NEGATIVE NEGATIVE Urine Cannabinoids Screen NEGATIVE NEGATIVE My Orders Orders - JHONNY METZ DO Urinalysis (06/24/18 20:16) Thyroid Analyzer (06/24/18 20:16) Drug Screen Stat (Urine) (06/24/18 20:16) Cbc With Automated Diff (06/24/18 20:16) Comprehensive Metabolic Panel (06/24/18 20:16) Alcohol (06/24/18 20:16) Acetaminophen (06/24/18 20:16) Salicylate (06/24/18 20:16) Ekg Tracing (06/24/18 20:16) Hcg,Qualitative Urine (06/24/18 20:16) Potassium Chloride (Tablet) (Klor Con Ta (06/24/18 21:15) Medications Given in ED Current Medications Medications Dose Ordered Sig/Susan Route Start Time Stop Time Status Last Admin Dose Admin Potassium Chloride 20 meq ONCE ONCE PO 06/24/18 21:15 06/24/18 21:16 DC 06/24/18 21:35 20 MEQ Vital Signs/I&O 06/24/18 23:35 Temp 96.9 Pulse 91 Resp 20 B/P (MAP) 136/84 (101) Pulse Ox 99 Blood Pressure Mean: 129 Progress Progress Note : Progress Note UNEVENTFUL ER STAY PT REMAINED QUIET AND COOPERATIVE THROUGHOUT ER STAY Initial ECG Impression Date: Jun 24, 2018 Initial ECG Impression Time: 20:33 Initial ECG Rate: 70 Initial ECG Rhythm: Normal Sinus Initial ECG Comparisson: No Previous ECG Available Departure Communication (Admissions) 2114--CALLED DARREN DIRECT CALL. MESSAGE LEFT ON MACHINE 2115--CALLED OSMIN WALTON--PLACED ON HOLD THEN DISCONNECTED 2116--DARREN CALLED BACK, HAVE FEMALE BED. 2119--SPOKE WITH DR. MARAVILLA, ACCEPTS PT FOR ADMIT/TRANSFER Impression Primary Impression: Suicidal ideation Additional Impressions: MILD HYPOKALEMIA Major depression Disposition: XFER SHT-TRM HOSP Condition: Stable Transfer Transfer Facility: [facility] Method of Transfer: Private Vehicle ([facility], SECURE TRANSPORT) Departure-Patient Inst. Referrals: FRANK TIERNEY MD (PCP/Family) Primary Care Physician JHONNY METZ DO Jun 24, 2018 21:54
--- NOTE | 2018-06-24 23:00 | NUR ---
PT ER ADMISSION, LABS, EKG AND ALL PERTINENT PT INFO FAXED TO [facility].
[2018-06-24 23:35] VITALS: BP 136/84
--- NOTE | 2018-06-24 23:35 | NUR ---
DAYANA BARRIENTOS HERE TO TRANSFER PT. ALL BELONGINGS WITH PT. REPORT TO HALEY OSPINA AT [facility].
[2018-06-25 11:48] LABS: TSH (THYROID ANALYZER) 1.12 UIU/ML (0.35-4.94)
== END 2018-06-24 23:35 ==
LOC: EDUNIT# 20:03 → ER 20:05
DX: R45.851 Suicidal ideations (principal); E87.6 Hypokalemia; F32.9 Major depressive disorder, single episode, unspecified; F41.9 Anxiety disorder, unspecified; F98.8 Other specified behavioral and emotional disorders with onset usually occurring in childhood and adolescence; F90.9 Attention-deficit hyperactivity disorder, unspecified type; F17.210 Nicotine dependence, cigarettes, uncomplicated; Z98.890 Other specified postprocedural states; Z91.5 Personal history of self-harm; Z80.1 Family history of malignant neoplasm of trachea, bronchus and lung; Z82.49 Family history of ischemic heart disease and other diseases of the circulatory system
CPT/HCPCS: 36415; 80053; 80306; 80320; 80329; 81000; 84443; 84703; 85025; 93005

== ENCOUNTER 2018-08-07 11:55 | Emergency (ER) | payer SELFPAY ==
[~2018-08-07] VITALS: Ht 165.1 cm; Wt 81.6 kg
--- NOTE | 2018-08-07 12:24 | ED Abdominal Pain ---
General Stated Complaint: EXTREMELY CONSTIPATED Source of Information: Patient Exam Limitations: No Limitations History of Present Illness Date Seen by Provider: Aug 07, 2018 Time Seen by Provider: 12:23 Initial Comments To ER with reports of constipation and diffuse abdominal pain. No vomiting. This began a few days ago. She has had alternating loose stools and "rabbit turds" and states that she has also got a hemorrhoid that is painful for the past 2 days. She is on several psychiatric medications including Pristiq, Seroquel and hydroxyzine Timing/Duration: 1-2 Days Severity/Quality: Moderate Location: Generalized Abdomen Radiation: No Radiation Activities at Onset: None Allergies and Home Medications Allergies Coded Allergies: No Known Drug Allergies (Unverified , 12/12/16) Home Medications Ibuprofen 600 Mg Tablet, 600 MG PO Q6H PRN for CRAMPS Prescribed by: MARCO CAZARES on 03/01/17 0932 Ondansetron 4 Mg Tab.rapdis, 4 MG PO Q6H PRN for NAUSEA/VOMITING Prescribed by: GAVIN ANDRADE on 06/09/18 1545 Vit W-Ca,Fe,FA(<1 mg) 1 Each Tablet, 1 TAB PO DAILY, (Reported) Patient Home Medication List Home Medication List Reviewed: Yes Review of Systems Review of Systems Constitutional: see HPI EENTM: No Symptoms Reported Respiratory: No Symptoms Reported Cardiovascular: No Symptoms Reported Gastrointestinal: See HPI, Abdominal Pain, Constipated, Diarrhea, Nausea; Denies Vomiting Genitourinary: No Symptoms Reported Musculoskeletal: no symptoms reported Skin: no symptoms reported Psychiatric/Neurological: No Symptoms Reported Endocrine: No Symptoms Reported Past Lcipdbi-Yzlabi-Jytbhy Hx Patient Social History Type Used: Cigarettes Recent Foreign Travel: No Contact w/Someone Who Travel: No Recent Hopitalizations: No Immunizations Up To Date Tetanus Booster (TDap): Unknown PED Vaccines UTD: Yes Date of Influenza Vaccine: Feb 05, 2017 Seasonal Allergies Seasonal Allergies: Yes Past Medical History Surgeries: Yes (wisdom teeth 2009,SALIVARY GLAND LUMP REMOVED 2011-BENIGN ) Respiratory: No Cardiac: No Neurological: No Female Reproductive Disorders: Denies Sexually Transmitted Disease: No HIV/AIDS: No Genitourinary: No Gastrointestinal: No Musculoskeletal: No Endocrine: No HEENT: No Loss of Vision: Denies Hearing Impairment: Denies Cancer: No Psychosocial: Yes ADD/ADHD, Sleep Difficulties, Anxiety, Suicide Attempts, Depression Integumentary: No Blood Disorders: No Adverse Reaction/Blood Tranf: No Family Medical History Alcoholism 19 FATHER PATERNAL GRANDMOTHER PATERNAL GRANDFATHER Hypertension 19 MOTHER Neoplasm PATERNAL GRANDMOTHER (LUNG CANCER) Physical Exam Vital Signs Vital Signs - First Documented 08/07/18 12:16 Temp 97.9 Pulse 75 Resp 15 B/P (MAP) 130/91 (104) Pulse Ox 99 O2 Delivery Room Air Capillary Refill : Height/Weight/BMI Height: 5'5.00" Weight: 195lbs. 0.0oz. 88.971271cq; 35.3 BMI Method:Stated General Appearance: WD/WN, no apparent distress HEENT: PERRL/EOMI, normal ENT inspection Respiratory: no respiratory distress, no accessory muscle use Gastrointestinal: normal bowel sounds, non tender, soft Rectal: other (digital rectal exam done with Jany DE LEON at bedside. There is no palpable fecal impaction. There is an acutely thrombosed external hemorrhoid.) Extremities: normal range of motion, non-tender Neurologic/Psychiatric: alert, normal mood/affect, oriented x 3 Skin: normal color, warm/dry Progress/Results/Core Measures Results/Orders My Orders Orders - GAVIN ANDRADE APRN Acute Abd Series (08/07/18 12:22) Soap Suds Enema (08/07/18 12:22) Ct Abdomen/Pelvis Wo (08/07/18 12:49) Vital Signs/I&O 08/07/18 12:16 Temp 97.9 Pulse 75 Resp 15 B/P (MAP) 130/91 (104) Pulse Ox 99 O2 Delivery Room Air Diagnostic Imaging Diagonstic Imaging: CT Plain Films/CT/US/NM/MRI: chest Comments NAME: JAMILA SOL [facility] REC#: [id number] PT STATUS: REG ER : 1985 PHYSICIAN: GAVIN ANDRADE APRN ADMIT DATE: 08/07/18/ER Draft Date of Exam:08/07/18 CT ABDOMEN/PELVIS WO PROCEDURE: CT abdomen and pelvis without contrast. TECHNIQUE: Multiple contiguous axial images were obtained through the abdomen and pelvis without the use of intravenous contrast. INDICATION: Constipation for one and a half weeks. COMPARISON: No prior studies are available for comparison. FINDINGS: Imaging through the lung bases show some minimal atelectasis or scarring in the right middle lobe. Otherwise the lungs are clear. No discrete liver mass is identified. Gallbladder is unremarkable. No biliary ductal dilatation is seen. The pancreas and spleen are unremarkable. No adrenal mass is identified. No renal calculi or hydronephrosis is detected. Aorta is non-aneurysmal. The small and large bowel loops are nonobstructed. No significant stool load is identified. There is no ascites. There is a cystic mass in the right adnexa measuring nearly 6 cm. This is likely ovarian. Uterus and bladder are unremarkable. IMPRESSION: 6 cm cystic mass in the right adnexa, likely ovarian. This could be further characterized with pelvic sonography. Study is otherwise unremarkable. Dictated on workstation # [id number] Dict: 08/07/18 1329 Trans: 08/07/18 1335 [place] [id number] Interpreted by: NNAMDI SNEED MD Electronically signed by: Departure Communication (Admissions) NAME: JAMILA SOL [facility] REC#: [id number] PT STATUS: REG ER : 1985 PHYSICIAN: GAVIN ANDRADE APRN ADMIT DATE: 08/07/18/ER Draft Date of Exam:08/07/18 CT ABDOMEN/PELVIS WO PROCEDURE: CT abdomen and pelvis without contrast. TECHNIQUE: Multiple contiguous axial images were obtained through the abdomen and pelvis without the use of intravenous contrast. INDICATION: Constipation for one and a half weeks. COMPARISON: No prior studies are available for comparison. FINDINGS: Imaging through the lung bases show some minimal atelectasis or scarring in the right middle lobe. Otherwise the lungs are clear. No discrete liver mass is identified. Gallbladder is unremarkable. No biliary ductal dilatation is seen. The pancreas and spleen are unremarkable. No adrenal mass is identified. No renal calculi or hydronephrosis is detected. Aorta is non-aneurysmal. The small and large bowel loops are nonobstructed. No significant stool load is identified. There is no ascites. There is a cystic mass in the right adnexa measuring nearly 6 cm. This is likely ovarian. Uterus and bladder are unremarkable. IMPRESSION: 6 cm cystic mass in the right adnexa, likely ovarian. This could be further characterized with pelvic sonography. Study is otherwise unremarkable. Dictated on workstation # [id number] Dict: 08/07/18 1329 Trans: 08/07/18 1335 [facility] [id number] Interpreted by: NNAMDI SNEED MD Electronically signed by: Impression Primary Impression: Right adnexal cystic lesion Additional Impressions: Irregular bowel habits Acute hemorrhoid Disposition: HOME, SELF-CARE Condition: Stable Departure-Patient Inst. Decision time for Depature: 13:43 Referrals: FRANK TIERNEY MD (PCP/Family) Primary Care Physician Patient Instructions: Hemorrhoids Add. Discharge Instructions: Follow-up with [facility] / [facility] this week. You have what appears to be a cyst on the right ovaries this will need followed up with her a pelvic ultrasound which they will schedule. Return to ER for any vomiting fevers or other concerns. Use one capful of MiraLAX daily. Scripts Hydrocortisone Acetate (Anusol-Hc) 25 Mg Supp.rect 25 MG RC TID PRN for PAIN-MODERATE, #20 SUPP.RECT Prov: GAVIN ANDRADE MANAGER EVENT 08/07/18 GAVIN ANDRADE APRN Aug 07, 2018 12:24
--- NOTE | 2018-08-07 12:47 | Diagnostic Imaging Report ---
INDICATION: Constipation. TIME OF EXAM: 12:33 p.m. FINDINGS: The heart size is normal. The lungs are clear. No free air is identified. No pathologic calcifications are seen. There is a paucity of bowel gas. There appear to be occasional air-fluid levels in the pelvis. Findings could be owing to fluid-filled bowel loops. If there is concern for obstruction, CT could be performed. No significant stool load is identified. IMPRESSION: Nonspecific air-fluid levels in the pelvis and possibly fluid-filled bowel loops throughout the abdomen. If there is concern for bowel obstruction, CT could be performed. Dictated by: Dictated on workstation # [id number]
--- NOTE | 2018-08-07 13:35 | Diagnostic Imaging Report ---
PROCEDURE: CT abdomen and pelvis without contrast. TECHNIQUE: Multiple contiguous axial images were obtained through the abdomen and pelvis without the use of intravenous contrast. INDICATION: Constipation for one and a half weeks. COMPARISON: No prior studies are available for comparison. FINDINGS: Imaging through the lung bases show some minimal atelectasis or scarring in the right middle lobe. Otherwise the lungs are clear. No discrete liver mass is identified. Gallbladder is unremarkable. No biliary ductal dilatation is seen. The pancreas and spleen are unremarkable. No adrenal mass is identified. No renal calculi or hydronephrosis is detected. Aorta is non-aneurysmal. The small and large bowel loops are nonobstructed. No significant stool load is identified. There is no ascites. There is a cystic mass in the right adnexa measuring nearly 6 cm. This is likely ovarian. Uterus and bladder are unremarkable. IMPRESSION: 6 cm cystic mass in the right adnexa, likely ovarian. This could be further characterized with pelvic sonography. Study is otherwise unremarkable. Dictated by: Dictated on workstation # [id number]
[2018-08-07] MEDS ORDERED: HYDR25SU28 RC (13:45)
[2018-08-07 14:10] VITALS: BP 124/92
== END 2018-08-07 14:10 | disposition home or self-care (01) ==
LOC: EDUNIT# 11:55 → ER 11:57
DX: N83.8 Other noninflammatory disorders of ovary, fallopian tube and broad ligament (principal); R19.4 Change in bowel habit; K64.5 Perianal venous thrombosis; F98.8 Other specified behavioral and emotional disorders with onset usually occurring in childhood and adolescence; F90.9 Attention-deficit hyperactivity disorder, unspecified type; F41.9 Anxiety disorder, unspecified; F32.9 Major depressive disorder, single episode, unspecified; Z91.5 Personal history of self-harm; Z82.49 Family history of ischemic heart disease and other diseases of the circulatory system; Z80.1 Family history of malignant neoplasm of trachea, bronchus and lung
CPT/HCPCS: 74022; 74176

== ENCOUNTER 2018-09-21 21:24 | Emergency (ER) | payer MEDICAID, OTHER ==
[~2018-09-21] VITALS: Ht 165.1 cm; Wt 81.6 kg
[~2018-09-21 21:24] MED LIST changes: +HYDR25SU28 RC
[2018-09-21] MEDS ORDERED: RX-MUPIROCIN (BACTROBAN) 2% OINT 22 GM TUBE TOP STA (21:57)
--- NOTE | 2018-09-21 22:03 | ED Integumentary General ---
General Chief Complaint: Skin/Wound Problems Stated Complaint: INFECTION FROM RECENT TATTOO Nursing Triage Note: Patient advises she did a home tattoo approximately 4 days ago. She advise the area has become red and painful rating at 8/10. She is afebrile at this time but c/o nausea. History of Present Illness Date Seen by Provider: Sep 21, 2018 Time Seen by Provider: 21:45 Initial Comments 32-year-old female did a tattoo at home with her personal tattoo gun left A.C., today it began to have some erythema and painful. She reports using clean needles and not sharing. She reports that her last tetanus injection was 3 years ago. She also has sinus drainage, causing nausea. Timing/Duration: other (4 days ago) Location: extremities (left upper, AC) Possible Cause: other (tattoo) Associated Symptoms: denies symptoms Allergies and Home Medications Allergies Coded Allergies: amphetamine (Verified Allergy, Unknown, 09/21/18) dextroamphetamine (Verified Allergy, Unknown, 09/21/18) meperidine (Verified Allergy, Unknown, 09/21/18) metoclopramide (Verified Allergy, Unknown, 09/21/18) Home Medications Hydrocortisone Acetate 25 Mg Supp.rect, 25 MG RC TID PRN for PAIN-MODERATE Prescribed by: GAVIN ANDRADE on 08/07/18 1345 Ibuprofen 600 Mg Tablet, 600 MG PO Q6H PRN for CRAMPS Prescribed by: MARCO CAZARES on 03/01/17 0932 Ondansetron 4 Mg Tab.rapdis, 4 MG PO Q6H PRN for NAUSEA/VOMITING Prescribed by: GAVIN ANDRADE on 06/09/18 1545 Vit W-Ca,Fe,FA(<1 mg) 1 Each Tablet, 1 TAB PO DAILY, (Reported) Patient Home Medication List Home Medication List Reviewed: Yes Review of Systems Review of Systems Constitutional: no symptoms reported, see HPI Skin: see HPI, change in color All Other Systems Reviewed Negative Unless Noted: Yes Past Nqmmvqw-Gupqia-Hqrnnp Hx Past Med/Social Hx: Reviewed Nursing Past Med/Soc Hx Patient Social History Alcohol Use: Denies Use Recreational Drug Use: No Smoking Status: Current Everyday Smoker Type Used: Cigarettes Former Smoker, Quit: Dec 03, 2016 2nd Hand Smoke Exposure: Yes Recent Foreign Travel: No Contact w/Someone Who Travel: No Recent Infectious Disease Expo: No Recent Hopitalizations: No Immunizations Up To Date Tetanus Booster (TDap): Unknown PED Vaccines UTD: Yes Date of Influenza Vaccine: Feb 05, 2017 Seasonal Allergies Seasonal Allergies: Yes Past Medical History Surgeries: Yes (wisdom teeth 2009,SALIVARY GLAND LUMP REMOVED 2012-BENIGN ) Respiratory: No Cardiac: No Neurological: No Female Reproductive Disorders: Denies Sexually Transmitted Disease: No HIV/AIDS: No Genitourinary: No Gastrointestinal: No Musculoskeletal: No Endocrine: No HEENT: No Loss of Vision: Denies Hearing Impairment: Denies Cancer: No Psychosocial: Yes ADD/ADHD, Sleep Difficulties, Anxiety, Suicide Attempts, Depression Integumentary: No Blood Disorders: No Adverse Reaction/Blood Tranf: No Family Medical History Alcoholism 19 FATHER PATERNAL GRANDMOTHER PATERNAL GRANDFATHER Hypertension 19 MOTHER Neoplasm PATERNAL GRANDMOTHER (LUNG CANCER) Physical Exam Vital Signs Vital Signs - First Documented 09/21/18 21:33 Temp 98.2 Pulse 90 Resp 14 B/P (MAP) 135/84 (101) Pulse Ox 98 O2 Delivery Room Air Capillary Refill : Less Than 3 Seconds General Appearance: WD/WN, no apparent distress HEENT: PERRL/EOMI, normal ENT inspection, other (postnasal drainage noted, no sinus tenderness) Cardiovascular: normal peripheral pulses, regular rate, rhythm Respiratory: chest non-tender, lungs clear, normal breath sounds Neurologic/Psychiatric: no motor/sensory deficits, alert, normal mood/affect, oriented x 3 Skin: normal color, warm/dry Skin Problem Location: upper extremities (left AC) Skin Problem Character: erythema (trace to the left antecubital, no induration , fluctuance, warmth or drainage.) Lymphatic: no adenopathy, other (no left epitrochlear adenopathy) Progress/Results/Core Measures Results/Orders My Orders Orders - BIB RESENDIZ Rx-Mupirocin 2% Oint (Rx-Bactroban) (09/21/18 21:57) Vital Signs/I&O 09/21/18 09/21/18 21:33 22:14 Temp 98.2 Pulse 90 81 Resp 14 14 B/P (MAP) 135/84 (101) 140/92 (108) Pulse Ox 98 98 O2 Delivery Room Air Room Air Blood Pressure Mean: 101 Progress Progress Note : Time: 21:45 Progress Note Patient seen and evaluated. Wound cleaned with Hibiclens. Bactroban ointment applied and sterile dressing. Discharge instructions, wound care and return precautions reviewed with the patient. All questions answered. Departure Impression Primary Impression: Tattoo reaction Additional Impression: Seasonal allergic rhinitis Qualified Codes: J30.2 - Other seasonal allergic rhinitis Disposition: HOME, SELF-CARE Condition: Improved Departure-Patient Inst. Decision time for Depature: 22:00 Referrals: EMIR ROTHMAN MD (PCP/Family) Primary Care Physician Patient Instructions: Wound Care (DC), Seasonal Allergies (DC) Add. Discharge Instructions: Use Nasonex 2 sprays in each naris once daily. Benadryl 50 mg at bedtime. Clean wound with peroxide and apply mupirocin three times daily. Follow-up with your primary care provider if symptoms are not improving or worsen. May alternate between Tylenol 650 mg and ibuprofen 600 mg every 4 hours for pain or fever. Return to emergency department for new, urgent problems. All discharge instructions reviewed with patient and/or family. Voiced understanding. Copy Copies To 1: EMIR ROTHMAN MD, AMY ARNP Sep 21, 2018 22:03
[2018-09-21 22:14] VITALS: BP 140/92
== END 2018-09-21 22:30 | disposition home or self-care (01) ==
LOC: EDUNIT# 21:24 → ER 21:25
DX: T65.891A Toxic effect of other specified substances, accidental (unintentional), initial encounter (principal); J30.2 Other seasonal allergic rhinitis; F90.9 Attention-deficit hyperactivity disorder, unspecified type; F98.8 Other specified behavioral and emotional disorders with onset usually occurring in childhood and adolescence; F41.9 Anxiety disorder, unspecified; F32.9 Major depressive disorder, single episode, unspecified; Z91.5 Personal history of self-harm; Z80.0 Family history of malignant neoplasm of digestive organs; Z88.8 Allergy status to other drugs, medicaments and biological substances; Z79.51 Long term (current) use of inhaled steroids; Z87.891 Personal history of nicotine dependence; Z86.018 Personal history of other benign neoplasm
CPT/HCPCS: 99283

== ENCOUNTER 2019-05-11 17:02 | Emergency (ER) | payer OTHER, MEDICAID ==
[~2019-05-11] VITALS: Ht 165.1 cm; Wt 100.0 kg
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
[2019-05-11 18:15] VITALS: BP 136/95
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
== END 2019-05-11 18:16 | disposition home or self-care (01) ==
LOC: EDUNIT# 17:02 → ER 17:04
DX: S80.11XA Contusion of right lower leg, initial encounter (principal); F90.9 Attention-deficit hyperactivity disorder, unspecified type; F41.9 Anxiety disorder, unspecified; F32.9 Major depressive disorder, single episode, unspecified; F17.210 Nicotine dependence, cigarettes, uncomplicated; Z88.8 Allergy status to other drugs, medicaments and biological substances; Z88.5 Allergy status to narcotic agent; Z79.52 Long term (current) use of systemic steroids; Z82.49 Family history of ischemic heart disease and other diseases of the circulatory system; Z80.1 Family history of malignant neoplasm of trachea, bronchus and lung; V49.50XA Passenger injured in collision with unspecified motor vehicles in traffic accident, initial encounter
CPT/HCPCS: 73590